=== PATIENT | male | born 1975 | race Caucasian/White ===

== ENCOUNTER → 2023-10-31 14:05 | Outpatient (REF) | payer OTHER, SELFPAY | LOC: HWRAD 14:05 | PROVIDERS: ATTENDING PHYSICIAN Nurse Practitioner Family | DX: K40.90 Unilateral inguinal hernia, without obstruction or gangrene, not specified as recurrent (principal) | CPT/HCPCS: 76882 ==

== ENCOUNTER 2023-12-06 09:06 | Day surgery (SDC) | payer OTHER, SELFPAY ==
[2023-11-26 08:23] VITALS: BMI 26.5
[2023-12-06] VITALS (10 sets, daily range): BP systolic 115–142; BP diastolic 84–103; BMI 26.5
[2023-12-06] MEDS: TYLENOL 1000 MG PO (09:11)
--- NOTE | 2023-12-06 09:11 | W.SUR.PREOP ---
Pre-Operative Surgical Note
-
I have examined this patient prior to the performance of the scheduled procedure.
The patient's condition is unchanged from the time of the current History and
Physical and the patient is able to undergo the scheduled procedure.
[2023-12-06] MEDS: NORMOSOL-R/PLASMALYTE-A 1000 IV (09:15)
[2023-12-06] MEDS: DILAUDID 0.5 MG IV (11:27)
--- NOTE | 2023-12-06 11:34 | W.IMMPOSTOP ---
Surgical Immed Post Op Note
-
Primary Surgeon: Roge Veloz MD
Assisting Surgeon: None
Pre-op Diagnosis: Left inguinal hernia
Post-op Diagnosis: Same
Procedure Performed: Robotic left inguinal hernia repair with mesh (ANDRES approach)
Anesthesia Type: General
Specimen / Cultures: None
Estimated Blood Loss: 3 cc
Complications: None
Operative Findings: Small left indirect inguinal hernia, no direct component. Small femoral and small cord lipoma (removed). The defect was reinforced with a large left Bard 3D max mid weight uncoated polypropylene mesh.
--- NOTE | 2023-12-06 11:39 | OR.RPT ---
Operative Report
Operative Report
Patient Name: Augustine Boles
: 1975
Date of Operation: 12/06/2023
Preoperative Diagnosis: Reducible Inguinal hernia, [Left]
Postoperative Diagnosis: Same
Procedure(s):
Robotic left inguinal Hernia Repair with mesh, (ANDRES approach)
Surgeon(s):
Dr. Veloz
Animal Biologist(s):
DOREEN Martinez
Anesthesia: General
Estimated Blood Loss: [3] cc
Urine Output: None
Drains/Lines/Implants: Large 3D Max Bard mid weight mesh
Specimens: None
Indication for surgery: The patient has a history of groin pain and noted on exam to have [a Left] Inguinal Hernia(s). Following review of therapeutic options they have elected to undergo a minimally invasive repair.
Operative Findings: Small left indirect inguinal hernia, no direct component. Small femoral and small cord lipoma (removed). The defect was reinforced with a large left Bard 3D max mid weight uncoated polypropylene mesh.
Details of the operation:
The patient was brought to the Operating Room and placed in the supine position with the arms tucked. IV antibiotics were infused and Venodyne stockings placed. Following uneventful induction of general endotracheal anesthesia, an orogastric tube
were placed. The abdomen was prepped and draped in the usual sterile fashion. The abdomen was entered using a Veress technique which required [2] pass(es), pneumoperitoneum to 15 mmHg was obtained without difficulty. An 8mm trochar was passed
through the abdominal wall roughly 20 cm cephalad to the inguinal canal. We then confirmed that no inadvertent injury was made while passing the trocar or Veress needle. We then placed two additional 8 mm ports in the left upper and right upper
quadrants. We then docked the robot with a Prograsper in the left hand port and monopolar scissors in the right. There was no hernia defect noted on the right, left indirect inguinal defect was noted. There was sigmoid colon tethered to the
inferior portion of the peritoneum. We then began by creating a flap at the level of the ASIS laterally working our way medially to the medial umbilical fold. Staying onto the peritoneum we were able to circumferentially dissect around the hernia
sac and and peel it off of the underlying [spermatic cord and testicular vessels, taking care to preserve them]. Medially we identified the midline pubis as well as Asad's ligament and ensured to dissect 2 cm below the pubic rim over the bladder.
After exposure of the entire myopectineal orifice we identified and reduced: [A medium sized indirect inguinal hernia, no direct inguinal hernia, no femoral hernia, a tiny cord lipoma, which was removed]
We then fixated a large 3D max mesh with a 2-0 Vicryl stitch at coopers medially and superior laterally. The flap was then closed with a running 2-0 barbed monocryl suture ensuring that the tail was cut flush with the medial fat pad so that no
barbs were exposed. During the closure of the flap an Angiocath was inserted and 20 cc of quarter percent Marcaine was instilled. The area in the flap cavity was then evacuated of air confirming that the mesh was flush and there were no folds. [A
minuscule rent in the peritoneum was noted laterally but left alone]. All needles and instruments were then removed and the robot was undocked. The abdomen was then desufflated, and pneumoperitoneum evacuated. All skin sites were then closed with
4-0 Monocryl followed by Dermabond. Counts were correct and overall, the patient tolerated the procedure well and was taken to the Recovery Room postoperatively in stable condition.
I was the attending physician and performed the procedure with assistance of the PA above. I was present for all portions of the case, excluding wound closure. The assistance of DOREEN Martinez was required due to the complexity of the procedure.
During the procedure Di assisted with retraction, resection, and closure of the wound.
Roge Veloz MD
[2023-12-06] MEDS: DILAUDID 0.25 MG IV (11:45)
[2023-12-06] MEDS: TORADOL 30 MG IV (11:53)
== END 2023-12-06 13:19 | disposition home or self-care (01) ==
LOC: SDS 09:06
PROVIDERS: ATTENDING PHYSICIAN Surgery; FAMILY PHYSICIAN Nurse Practitioner Family
DX: K40.90 Unilateral inguinal hernia, without obstruction or gangrene, not specified as recurrent (principal)
CPT/HCPCS: 49650; 36415; 93005; C1781